=== PATIENT | male | born 2000 ===

== ENCOUNTER 2025-02-02 21:21 | Emergency (ER) | payer OTHER, SELFPAY ==
[2025-02-02 21:53] VITALS: BP 145/87; PULSE 75; RESP 18; TEMP 37.1; O2SAT 98; BMI 25.5
--- OUTSIDE RECORDS SUMMARY | 2025-02-02 22:21 | XMS_ITS | Clinical Summary ---
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 Medications No known medications Active Problems No known active problems Social History Tobacco Use Types Packs/Day Years Used Date Smoking Tobacco: Never Smokeless Tobacco: Never Tobacco Cessation:Counseling Given: Not Answered Comments:Dad does smoke Social Connections Answer Date Recorded Frequency of Communication with Friends and Fami ly Not on file 04/07/2023 Sex and Gender Information Value Date Recorded Sex Assigned at Not on file Legal Sex Male 1:24 PM CDT Gender Identity Not on file Sexual Orientation Not on file Obstetrics History Last Filed Vital Signs Vital Sign Reading Time Taken Comments Blood Pressure 117/66 04/07/2023 3:02 PM CDT Pulse 58 04/07/2023 3:02 PM CDT Temperature 36.8 C (98.2 F) 04/07/2023 3:02 PM CDT Respiratory Rate - - Oxygen Saturation 98% 04/07/2023 3:02 PM CDT Inhaled Oxygen Concentration - - Weight - - Height - - Body Mass Index - - Plan of Treatment Health Maintenance Due Date Last Done Comments Tdap 2013 Depression screening for age 12+ 2014 HIV for age 15-65 2017 HPV series for age 9-26 (1 - Male 3-dose series) 2017 BMI (ht and wt on same day) for age 18+ 2020 Hepatitis C screening for ag e 18-79 2020 Hepatitis B series for 19+ ( 1 of 3 - 19+ 3-dose series) 2021 Tetanus booster 2022 COVID-19 vaccine series ( season) 2024 07/09/2022 Influenza Vaccine (Season Ended) 2025 Pneumococcal series for age 6-49 Aged Out No longer eligible based on patient's age to complete this topic Care Teams Training Development Director Relationship Specialty Start Date End Date Pcp, No . PCP - General 04/04/22
== END 2025-02-02 22:21 | disposition left against medical advice (07) ==
LOC: ED 22:19
PROVIDERS: Emergency Provider Family Medicine
DX: Z53.21 Procedure and treatment not carried out due to patient leaving prior to being seen by health care provider (principal)
CPT/HCPCS: 99281